=== PATIENT | female | born 1980 | race African-American/Black ===

== ENCOUNTER 2020-11-20 11:27 | Emergency (ER) | payer OTHER ==
[~2020-11-20] VITALS: Ht 152.4 cm; Wt 68.6 kg
[2020-11-20] MEDS ORDERED: AFRISPR3 (12:52)
[2020-11-20] MEDS ORDERED: BENZ200C70 PO (12:52)
[2020-11-20 13:24] VITALS: BP 137/86
== END 2020-11-20 13:25 | disposition home or self-care (01) ==
LOC: M ED 11:27
DX: R09.82 Postnasal drip (principal); R05 Cough; R04.0 Epistaxis

== ENCOUNTER → 2021-03-23 | Outpatient (CLI) | payer OTHER ==
[~2021-03-23] MED LIST: AFRISPR3; BENZ200C70 PO
--- NOTE | 2021-03-23 14:29 | REPMRS ---
Patient History The patient states she had a clinical breast exam in March 2021. Patient is nulliparous. No known family history of cancer. Patient states no breast complaints today. Patient has signed MRS History Sheet. Digital Woman Screen Mammo: March 23, 2021 - Exam #: [id number] Bilateral CC and MLO view(s) were taken. Technologist: Yue Duong, Technologist Prior study comparison: 2018, bilateral digital mammo screening bilat, [facility]. April 05, 2010, digital mammo diagnostic bilateral, performed at [facility]. FINDINGS: The breast tissue is heterogeneously dense. This may lower the sensitivity of mammography. Screening. Digital screening (2D) mammography was performed bilaterally in the CC and MLO projections. Additionally, breast tomosynthesis (3D mammography) was performed bilaterally in the CC and MLO projections. Todays exam was compared to the prior exam/exams. By history, the patient has no complaints of a palpable breast abnormality or other significant breast complaints. The Volpara volumetric breast density category is C, the breasts are heterogenously dense which may obscure small masses. The breasts are unchanged in size and shape. There are no kristy-soft tissue densities or spiculated masses. There is no internal architectural distortion. There are no suspicious kristy-calcific clusters. Skin thickening or nipple retraction is not present. IMPRESSION: BI-RADS Category 2- Benign Findings. There is no evidence of malignant alteration of the breasts. Followup examination recommended in one year. This mammogram was read with the assistance of Vivastream,an FDA approved computer aided detection system for mammography. The lifetime Tyrer-Cuzick score is 15.5% Negative x-ray reports should not delay surgical consultation if a dominant or clinically suspicious mass is present. Not all breast cancers can be identified by mammography. Therefore, we recommend that you continue to perform regular breast self-examination and physical examination and then promptly contact your physician of any concerns or changes. Due to the density of the breasts, MRI/whole breast screening ultrasound is warranted. Adenosis and dense breasts may obscure an underlying neoplasm. No significant changes when compared with prior studies. Assessment: BI-RADS/ACR category 2 mammogram. Benign Findings. Recommendation Routine screening mammogram of both breasts in 1 year. Electronically Signed By: Andrew Al MD 03/23/21 [id number]
== END ==
LOC: M WHC 13:00
DX: Z12.31 Encounter for screening mammogram for malignant neoplasm of breast (principal)

== ENCOUNTER 2021-11-28 12:22 | Outpatient (CLI) | payer OTHER ==
[~2021-11-28] VITALS: Ht 157 cm; Wt 69.0 kg
[2021-11-28 12:00] VITALS: BP 158/93
[2021-11-28] MEDS ORDERED: IRON SUCROSE 200 MG in NS 100 ML OVER 1 HR IV ONE (12:30)
[2021-11-28 13:50] VITALS: BP 140/87
== END 2021-11-28 13:50 | disposition home or self-care (01) ==
LOC: M INFU 12:22
PROVIDERS: ATTEND Physician Assistant
DX: D50.9 Iron deficiency anemia, unspecified (principal)
CPT/HCPCS: 96365; J1756

== ENCOUNTER 2021-11-28 18:20 | Emergency (ER) | payer OTHER ==
[~2021-11-28] VITALS: Ht 154.9 cm; Wt 67.9 kg
[2021-11-29 02:27] LABS: BASO % 0.3 % (0.0-1.0); EOS # 0.3 10^3/uL (0.0-0.5); EOS % 4.8 % (0.0-3.0); HEMATOCRIT 32.3 % (36.0-47.0); HEMOGLOBIN 9.9 g/dl (12.0-15.5); LYMPH % 30.5 % (24.0-44.0); MEAN CORPUSCULAR HEMOGLOBIN 21.7 pg (27.0-33.0); MEAN CORPUSCULAR HGB CONC 30.7 g/dl (32.0-36.5); MEAN CORPUSCULAR VOLUME 70.7 fl (80.0-96.0); MONO # 0.6 10^3/uL (0.0-0.8); MONO % 9.8 % (2.0-8.0); NEUTROPHILS # 3.5 10^3/uL (1.5-8.5); NEUTROPHILS % 54.4 % (36.0-66.0); PLATELET COUNT, AUTOMATED 331 10^3/uL (150-450); RED BLOOD COUNT 4.57 10^6/uL (4.00-5.40); WHITE BLOOD COUNT 6.5 10^3/uL (4.0-10.0)
[2021-11-29 02:56] LABS: BLOOD UREA NITROGEN 6 MG/DL (7-18); CALCIUM LEVEL 9.4 MG/DL (8.5-10.1); CARBON DIOXIDE LEVEL 29 MEQ/L (21-32); CHLORIDE LEVEL 105 MEQ/L (98-107); CREATININE FOR GFR 0.64 MG/DL (0.55-1.30); GLOMERULAR FILTRATION RATE > 60.0 (>58); GLUCOSE, FASTING 103 MG/DL (70-100); SODIUM LEVEL 140 MEQ/L (136-145)
[2021-11-29 02:59] LABS: RSV AMPLIFICATION NEGATIVE (NEGATIVE)
[2021-11-29 03:00] VITALS: BP 150/86
== END 2021-11-29 03:35 | disposition home or self-care (01) ==
LOC: M ED 18:20
DX: R51.9 Headache, unspecified (principal); R11.0 Nausea; R53.83 Other fatigue; D64.9 Anemia, unspecified
CPT/HCPCS: 80048; 85025; 87631; 93005; 93041; 94760; 96365; 99284; J1756

== ENCOUNTER 2021-12-05 12:04 | Outpatient (CLI) | payer OTHER ==
[~2021-12-05 12:04] MED LIST changes: +IRON SUCROSE 200 MG in NS 100 ML OVER 1 HR IV ONE
[2021-12-05 12:10] VITALS: BP 153/71
[2021-12-05 13:55] VITALS: BP 176/79
== END 2021-12-05 13:55 | disposition home or self-care (01) ==
LOC: M INFU 12:04
PROVIDERS: ATTEND Physician Assistant
DX: D50.9 Iron deficiency anemia, unspecified (principal)
CPT/HCPCS: 96365; J1756

== ENCOUNTER 2021-12-12 10:28 | Outpatient (CLI) | payer OTHER ==
[~2021-12-12] VITALS: Ht 157.5 cm; Wt 69.0 kg
[~2021-12-12 10:28] MED LIST changes: -IRON SUCROSE 200 MG in NS 100 ML OVER 1 HR IV ONE
[2021-12-12] MEDS ORDERED: IRON SUCROSE 200 MG in NS 100 ML OVER 1 HR IV ONE (10:30)
[2021-12-12 10:37] VITALS: BP 163/92
[2021-12-12 11:50] VITALS: BP 148/77
== END 2021-12-12 11:50 | disposition home or self-care (01) ==
LOC: M INFU 10:28
PROVIDERS: ATTEND Physician Assistant
DX: D50.9 Iron deficiency anemia, unspecified (principal)
CPT/HCPCS: 96365; J1756

== ENCOUNTER 2021-12-19 12:00 | Outpatient (CLI) | payer OTHER ==
[~2021-12-19] VITALS: Ht 157.5 cm; Wt 69.0 kg
[~2021-12-19 12:00] MED LIST changes: +IRON SUCROSE 200 MG in NS 100 ML OVER 1 HR IV ONE
[2021-12-19 12:22] VITALS: BP 152/89
[2021-12-19 13:48] VITALS: BP 137/86
== END 2021-12-19 13:45 | disposition home or self-care (01) ==
LOC: M INFU 12:00
PROVIDERS: ATTEND Physician Assistant
DX: D50.9 Iron deficiency anemia, unspecified (principal)
CPT/HCPCS: 96365; J1756

== ENCOUNTER 2021-12-26 12:05 | Outpatient (CLI) | payer OTHER ==
[~2021-12-26] VITALS: Ht 154.9 cm; Wt 65.9 kg
[2021-12-26 12:05] VITALS: BP 163/91
[2021-12-26 13:58] VITALS: BP 148/90
== END 2021-12-26 14:00 | disposition home or self-care (01) ==
LOC: M INFU 12:05
PROVIDERS: ATTEND Physician Assistant
DX: D50.9 Iron deficiency anemia, unspecified (principal)
CPT/HCPCS: 96365; J1756

== ENCOUNTER 2022-05-08 06:50 | Day surgery (SDC) | payer OTHER ==
[~2022-05-08] VITALS: Ht 154.9 cm; Wt 67.6 kg
[~2022-05-08 06:50] MED LIST changes: +ASCO100031 PO; -IRON SUCROSE 200 MG in NS 100 ML OVER 1 HR IV ONE; +MULT1TAB16 PO; +NS 1,000 ML IV ONE; +OILCAP PO; +ONETAB35 PO
[2022-05-08] MEDS ORDERED: propofoL 200 MG/20 ML VIAL As Ordered ONE (06:57)
[2022-05-08] MEDS ORDERED: LIDOCAINE 2% 100MG/5ML SDV (FOR ANES.) As Ordered ONE (06:57)
[2022-05-08 08:23] VITALS: BP 140/91
== END 2022-05-08 08:25 | disposition home or self-care (01) ==
LOC: M OPP 06:50
PROVIDERS: ATTEND Surgery
DX: D50.9 Iron deficiency anemia, unspecified (principal); K21.00 Gastro-esophageal reflux disease with esophagitis, without bleeding; I10 Essential (primary) hypertension; F32.9 Major depressive disorder, single episode, unspecified; F41.9 Anxiety disorder, unspecified; F43.10 Post-traumatic stress disorder, unspecified

== ENCOUNTER → 2022-11-29 | Outpatient (CLI) | payer OTHER ==
[~2022-11-29] MED LIST changes: -NS 1,000 ML IV ONE
== END ==
LOC: M WHC 07:10
PROVIDERS: ATTEND Internal Medicine
DX: Z12.31 Encounter for screening mammogram for malignant neoplasm of breast (principal)